=== PATIENT | female | born 1965 | race Caucasian/White ===

== ENCOUNTER 2022-03-02 18:33 | Emergency (ER) | payer OTHER ==
[2022-03-02 21:17] LABS: HEMOGLOBIN 12.6 gm/dl (12.3-15.3); RED BLOOD COUNT 4.19 M/UL (4.00-5.10); WHITE BLOOD COUNT 15.1 K/UL (4.5-11.0)
[2022-03-02 21:39] LABS: BUN/CREATININE RATIO 22 (0-10)
[2022-03-02] MEDS ORDERED: CEPHALEXIN500 MG PO (23:55)
== END 2022-03-03 00:15 | disposition home or self-care (01) ==
LOC: ER1 18:33
PROVIDERS: Family Medicine
DX: S61.412A Laceration without foreign body of left hand, initial encounter (principal); S01.81XA Laceration without foreign body of other part of head, initial encounter; S01.01XA Laceration without foreign body of scalp, initial encounter; S41.112A Laceration without foreign body of left upper arm, initial encounter; S50.852A Superficial foreign body of left forearm, initial encounter; S61.012A Laceration without foreign body of left thumb without damage to nail, initial encounter; S29.011A Strain of muscle and tendon of front wall of thorax, initial encounter; I10 Essential (primary) hypertension; V29.9XXA Motorcycle rider (driver) (passenger) injured in unspecified traffic accident, initial encounter; Y92.410 Unspecified street and highway as the place of occurrence of the external cause
CPT/HCPCS: 12001; 12013; 70450; 71260; 72125; 73030; 73090; 73130; 73630; 80053; 82550; 82553; 84484; 85025; 93005; 96374; 99284; J0690; J1885; Q9967